=== PATIENT | male | born 1955 | race Caucasian/White ===

== ENCOUNTER 2020-12-19 09:23 | Inpatient (IN) | payer OTHER, MEDICAID ==
[~2020-12-19] VITALS: Ht 172.7 cm; Wt 108.8 kg
[~2020-12-19 09:23] MED LIST: ALLO300T2 PO; ATEN-72 PO; OLME40TA8 PO; OMEP20TA25 PO; TRAMADOL
[2020-12-19] MEDS ORDERED: ASPIRIN 325 MG TABLET PO ONE (11:45)
[2020-12-19] MEDS ORDERED: MethylPREDNISolone SOD SUCC 125 MG/2 ML VIAL IVP ONE (11:45)
[2020-12-19] MEDS ORDERED: ALBUTEROL SULFATE 2.5 MG/0.5 ML NEB SOLUTION NEB ONE ×2 (11:45→13:30)
[2020-12-19] MEDS ORDERED: AZITHROMYCIN 500 MG/NS 250 ML IV ONE (11:45)
[2020-12-19] MEDS ORDERED: IPRATROPIUM BROMIDE 0.5 MG/2.5 ML NEB SOLUTION NEB ONE ×2 (11:45→13:30)
[2020-12-19] MEDS ORDERED: FUROSEMIDE 40 MG/4 ML VIAL IVP ONE (11:45)
[2020-12-19 12:17] LABS: BASOPHILS % (AUTO) 0.7 % (0.0-2.0); EOSINOPHILS % (AUTO) 1.7 % (1.0-6.0); HEMATOCRIT 41.1 % (41-53); HEMOGLOBIN 13.1 g/dL (13.5-17.5); LYMPHOCYTES # (AUTO) 1.6 K/uL (1.0-4.8); LYMPHOCYTES % (AUTO) 12.7 % (22.0-44.0); MEAN CORPUSCULAR HEMOGLOBIN 31.5 pg (26.0-34.0); MEAN CORPUSCULAR HGB CONC 31.9 G/dL (31.0-37.0); MEAN CORPUSCULAR VOLUME 99 fL (80-100); MONOCYTES # (AUTO) 0.9 K/uL (0.1-1.0); MONOCYTES % (AUTO) 7.2 % (2.0-9.0); NEUTROPHILS # (AUTO) 9.7 K/uL (1.8-7.7); NEUTROPHILS % (AUTO) 77.7 % (40.0-70.0); PLATELET COUNT (AUTO) 202 K/uL (150-450); RED BLOOD CELL COUNT(AUTO) 4.17 MIL/uL (4.50-5.90); RED CELL DISTRIBUTION WIDTH 13.6 % (11.5-14.5)
[2020-12-19 12:26] LABS: ANION GAP 5 mmol/L (8-16); CALCIUM, TOTAL 8.6 mg/dL (8.8-10.5); CARBON DIOXIDE 33 mmol/L (22-29); CHLORIDE 106 mmol/L (98-107); CREATININE 1.14 mg/dL (0.60-1.30); GLOMERULAR FILTR. RATE CALC > 60 mL/min (>60); GLUCOSE,RANDOM 132 mg/dL (70-110); POTASSIUM 3.9 mmol/L (3.5-5.1); SODIUM SERUM 144 mmol/L (136-145); UREA NITROGEN, BLOOD 14 mg/dL (7-18)
[2020-12-19 12:43] LABS: B-TYPE NATRIURETIC PEPTIDE 26 pg/mL (0-100)
[2020-12-19 12:45] LABS: COVID AG,FIA SOURCE NASOPHARYNGEAL
[2020-12-19 12:52] LABS: ALANINE AMINOTRANSFERASE 34 U/L (12-78); ALKALINE PHOSPHATASE 41 U/L (46-116); ASPARTATE AMINOTRANSFERASE 29 U/L (15-37); BILIRUBIN,TOTAL 0.3 mg/dL (0.1-1.0); CREATINE KINASE, TOTAL ONLY 139 U/L (39-308); LIPASE 123 U/L (73-393); TOTAL PROTEIN, SERUM 7.6 g/dL (6.4-8.2)
[2020-12-19 13:26] LABS: INFLUENZA TYPE A NEGATIVE FOR TYPE A (NEGATIVE); INFLUENZA TYPE B NEGATIVE FOR TYPE B (NEGATIVE)
[2020-12-19] MEDS ORDERED: 0.9% SODIUM CHLORIDE 10 ML SYRINGE IVP PRN (14:15)
[2020-12-19] MEDS ORDERED: IPRATROPIUM BROMIDE 0.5 MG/2.5 ML NEB SOLUTION NEB PRN (14:15)
[2020-12-19] MEDS ORDERED: MAGNESIUM HYDROXIDE SUSPENSION 30 ML UDCUP PO PRN (14:15)
[2020-12-19] MEDS ORDERED: MORPHINE SULFATE 2 MG/ML SYRINGE IVP PRN (14:15)
[2020-12-19] MEDS ORDERED: ALBUTEROL SULFATE 2.5 MG/0.5 ML NEB SOLUTION NEB PRN (14:15)
[2020-12-19] MEDS ORDERED: ACETAMINOPHEN 325 MG TABLET PO PRN ×2 (14:15)
[2020-12-19] MEDS ORDERED: ONDANSETRON HCL 4 MG/2 ML VIAL IVP PRN ×2 (14:15)
[2020-12-19] MEDS ORDERED: BISACODYL 10 MG RECTAL RECTAL SUPPOSITORY PR PRN (14:15)
[2020-12-19] MEDS ORDERED: OxyCODONE HCL/ACETAMINOPHEN 5-325 MG TABLET PO PRN (14:15)
[2020-12-19] MEDS ORDERED: COLC0.6T73 PO (14:25)
[2020-12-19] MEDS ORDERED: ALBU0.8311 NEB (14:25)
[2020-12-19] MEDS ORDERED: FURO20TA4 PO (14:25)
[2020-12-19] MEDS ORDERED: MONT10TA32 PO (14:25)
[2020-12-19] MEDS ORDERED: TRAZ-252 PO (14:25)
[2020-12-19] MEDS ORDERED: FENO145T26 PO (14:25)
[2020-12-19] MEDS ORDERED: OMEP20CA13 PO (14:25)
[2020-12-19] MEDS: ALBUTEROL SULFATE 2.5 MG/0.5 ML NEB SOLUTION NEB SCH ×3 (14:29→23:00)
[2020-12-19] MEDS: IPRATROPIUM BROMIDE 0.5 MG/2.5 ML NEB SOLUTION NEB SCH ×3 (14:30→23:00)
[2020-12-19] MEDS ORDERED: ALBUTEROL SULFATE 2.5 MG/0.5 ML NEB SOLUTION NEB SCH (15:00)
[2020-12-19] MEDS ORDERED: IPRATROPIUM BROMIDE 0.5 MG/2.5 ML NEB SOLUTION NEB SCH (15:00)
[2020-12-19] MEDS: OXYGEN THERAPY IH SCH ×2 (15:06→21:03)
[2020-12-19] MEDS: HEPARIN SODIUM,PORCINE 5,000 UNITS/ML VIAL SQ SCH ×3 (16:00→23:41)
[2020-12-19 17:47] VITALS: BP 161/94
[2020-12-19] MEDS: MethylPREDNISolone SOD SUCC 125 MG/2 ML VIAL IVP SCH ×2 (18:25→23:35)
[2020-12-19 20:24] VITALS: BP 85/59
[2020-12-19 20:37] VITALS: BP 131/71
[2020-12-19] MEDS: DOCUSATE SODIUM 100 MG CAPSULE PO SCH ×2 (20:52→21:00)
[2020-12-19] MEDS: ZOLPIDEM TARTRATE 5 MG TABLET PO PRN (20:52)
[2020-12-19 23:42] VITALS: BP 113/76
[2020-12-20 01:34] LABS: APPEARANCE,URINE CLEAR (CLEAR); BILIRUBIN,URINE NEGATIVE (NEGATIVE); GLUCOSE, URINE (UA) 250 mg/dL (NEGATIVE); KETONES,URINE TRACE mg/dL (NEGATIVE); LEUKOCYTE ESTERASE ,URINE NEGATIVE (NEGATIVE); NITRATE,URINE NEGATIVE (NEGATIVE); OCCULT BLOOD,URINE NEGATIVE (NEGATIVE); PH,URINE 5.5 (5.0-8.0); PROTEIN,URINE NEGATIVE (NEGATIVE); UROBILINOGEN,URINE 0.2 mg/dL (<=1.0)
[2020-12-20 01:38] LABS: AMPHET/METH SCREEN,URINE NEGATIVE (NEGATIVE); BARBITURATE SCREEN, URINE NEGATIVE (NEGATIVE); BENZODIAZEPINES SCREEN,URINE NEGATIVE (NEGATIVE); CANNABINOID SCREEN,URINE NEGATIVE (NEGATIVE); COCAINE SCREEN,URINE NEGATIVE (NEGATIVE); METHADONE SCREEN, URINE NEGATIVE (NEGATIVE); OPIATE SCREEN,URINE NEGATIVE (NEGATIVE)
[2020-12-20 01:39] LABS: PHENCYCLIDINE SCREEN,URINE NEGATIVE (NEGATIVE)
[2020-12-20 01:56] LABS: RBC,URINE None Seen /HPF (0-2); WBC,URINE 0-2 /HPF (0-5)
[2020-12-20 01:57] LABS: BACTERIA,URINE None Seen /HPF (None Seen)
[2020-12-20] MEDS: IPRATROPIUM BROMIDE 0.5 MG/2.5 ML NEB SOLUTION NEB SCH ×6 (03:00→23:00)
[2020-12-20] MEDS: ALBUTEROL SULFATE 2.5 MG/0.5 ML NEB SOLUTION NEB SCH ×6 (03:00→23:00)
[2020-12-20 04:45] VITALS: BP 113/69
[2020-12-20] MEDS: IPRATROPIUM BROMIDE HFA 17 MCG/PUFF 12.9 GM INHALER IH PRN ×2 (05:32→20:55)
[2020-12-20] MEDS: MethylPREDNISolone SOD SUCC 125 MG/2 ML VIAL IVP SCH ×3 (05:41→18:31)
[2020-12-20] MEDS: HEPARIN SODIUM,PORCINE 5,000 UNITS/ML VIAL SQ SCH ×3 (08:00→16:00)
[2020-12-20 08:49] VITALS: BP 168/91
[2020-12-20] MEDS ORDERED: [UNRECOGNIZED DRUG - OTHER] PO SCH (09:00)
[2020-12-20] MEDS: ATENOLOL 50 MG TABLET PO SCH (09:07)
[2020-12-20] MEDS: PANTOPRAZOLE SODIUM 40 MG DR TABLET PO SCH (09:07)
[2020-12-20] MEDS: OLMESARTAN MEDOXOMIL 40 MG TABLET PO SCH (09:07)
[2020-12-20] MEDS: ALLOPURINOL 300 MG TABLET PO SCH (09:07)
[2020-12-20] MEDS: DOCUSATE SODIUM 100 MG CAPSULE PO SCH ×2 (09:07→20:54)
[2020-12-20 11:39] VITALS: BP 144/89
[2020-12-20 15:57] VITALS: BP 139/74
[2020-12-20 20:07] VITALS: BP 122/79
[2020-12-20] MEDS ORDERED: BENZONATATE 100 MG CAPSULE PO SCH (21:00)
[2020-12-20] MEDS: ZOLPIDEM TARTRATE 5 MG TABLET PO PRN (21:02)
[2020-12-20] MEDS ORDERED: BENZONATATE 100 MG CAPSULE PO PRN (21:30)
[2020-12-20] MEDS ORDERED: MAGNESIUM SULFATE 3 GM in DEXTROSE 5%-WATER 100 ML IV ONE (21:30)
[2020-12-20] MEDS ORDERED: SODIUM CHLORIDE 0.9% 250 ML IV ONE (22:20)
[2020-12-20] MEDS: GuaiFENesin/CODEINE [SUGAR FREE] 200-20MG/10 ML SYRUP UDCUP PO PRN (22:41)
[2020-12-20] MEDS ORDERED: AZITHROMYCIN 500 MG/NS 250 ML IV SCH (23:00)
[2020-12-21] MEDS: MethylPREDNISolone SOD SUCC 125 MG/2 ML VIAL IVP SCH ×2 (00:01→06:25)
[2020-12-21 00:30] VITALS: BP 114/69
[2020-12-21] MEDS: ALBUTEROL SULFATE 2.5 MG/0.5 ML NEB SOLUTION NEB SCH ×4 (02:40→15:00)
[2020-12-21] MEDS: IPRATROPIUM BROMIDE 0.5 MG/2.5 ML NEB SOLUTION NEB SCH ×4 (02:40→15:00)
[2020-12-21 04:54] VITALS: BP 134/71
[2020-12-21 07:33] LABS: EOSINOPHILS % (AUTO) 0 % (1.0-6.0); HEMATOCRIT 40.4 % (41-53); HEMOGLOBIN 12.7 g/dL (13.5-17.5); LYMPHOCYTES # (AUTO) 0.7 K/uL (1.0-4.8); LYMPHOCYTES % (AUTO) 4.4 % (22.0-44.0); MEAN CORPUSCULAR HEMOGLOBIN 31.3 pg (26.0-34.0); MEAN CORPUSCULAR HGB CONC 31.4 G/dL (31.0-37.0); MEAN CORPUSCULAR VOLUME 100 fL (80-100); MONOCYTES # (AUTO) 0.3 K/uL (0.1-1.0); MONOCYTES % (AUTO) 2.2 % (2.0-9.0); NEUTROPHILS # (AUTO) 14.6 K/uL (1.8-7.7); PLATELET COUNT (AUTO) 192 K/uL (150-450); RED BLOOD CELL COUNT(AUTO) 4.06 MIL/uL (4.50-5.90); RED CELL DISTRIBUTION WIDTH 13.9 % (11.5-14.5)
[2020-12-21 07:38] LABS: NEUTROPHILS % (AUTO) 93.4 % (40.0-70.0)
[2020-12-21 07:52] LABS: ALANINE AMINOTRANSFERASE 30 U/L (12-78); ALBUMIN 3.1 g/dL (3.4-5.0); ALKALINE PHOSPHATASE 33 U/L (46-116); ASPARTATE AMINOTRANSFERASE 28 U/L (15-37); BILIRUBIN,TOTAL 0.3 mg/dL (0.1-1.0); CALCIUM, TOTAL 8.6 mg/dL (8.8-10.5); CREATININE 1.02 mg/dL (0.60-1.30); GLOMERULAR FILTR. RATE CALC > 60 mL/min (>60); GLUCOSE,RANDOM 144 mg/dL (70-110); POTASSIUM 4.6 mmol/L (3.5-5.1); TOTAL PROTEIN, SERUM 6.6 g/dL (6.4-8.2); UREA NITROGEN, BLOOD 24 mg/dL (7-18)
[2020-12-21 08:00] LABS: CHLORIDE 105 mmol/L (98-107)
[2020-12-21 08:04] LABS: ANION GAP 1 mmol/L (8-16); CARBON DIOXIDE 37 mmol/L (22-29); SODIUM SERUM 143 mmol/L (136-145)
[2020-12-21] MEDS: ALLOPURINOL 300 MG TABLET PO SCH (08:18)
[2020-12-21] MEDS: OLMESARTAN MEDOXOMIL 40 MG TABLET PO SCH (08:18)
[2020-12-21] MEDS: DOCUSATE SODIUM 100 MG CAPSULE PO SCH (08:19)
[2020-12-21] MEDS: PANTOPRAZOLE SODIUM 40 MG DR TABLET PO SCH (08:19)
[2020-12-21] MEDS: HEPARIN SODIUM,PORCINE 5,000 UNITS/ML VIAL SQ SCH ×3 (08:19→15:15)
[2020-12-21] MEDS: ATENOLOL 50 MG TABLET PO SCH (08:19)
[2020-12-21] MEDS: IPRATROPIUM BROMIDE HFA 17 MCG/PUFF 12.9 GM INHALER IH PRN (08:21)
[2020-12-21 08:31] VITALS: BP 129/66
[2020-12-21] MEDS ORDERED: PANTOPRAZOLE SODIUM 40 MG DR TABLET PO SCH (09:00)
[2020-12-21] MEDS: GuaiFENesin/CODEINE [SUGAR FREE] 200-20MG/10 ML SYRUP UDCUP PO PRN (10:19)
[2020-12-21 11:56] VITALS: BP 106/53
[2020-12-21] MEDS ORDERED: MethylPREDNISolone SOD SUCC 125 MG/2 ML VIAL IVP SCH (12:00)
[2020-12-21] MEDS ORDERED: PredniSONE 20 MG TABLET PO ONE (14:30)
[2020-12-21] MEDS ORDERED: PRED10 PO (14:53)
[2020-12-21] MEDS ORDERED: BENZ-70 PO (14:57)
[2020-12-21] MEDS ORDERED: CODE10LI PO (14:59)
[2020-12-21] MEDS ORDERED: IPRA3AMP24 NEB (15:01)
[2020-12-21 15:16] VITALS: BP 117/80
[2020-12-21] MEDS ORDERED: AZIT-84 PO (15:44)
== END 2020-12-21 17:20 | disposition home or self-care (01) | DRG 192 ==
LOC: EMS 09:25 → 5N 16:15
PROVIDERS: ADMIT Hospitalist; ATTEND Hospitalist
DX: J44.1 Chronic obstructive pulmonary disease with (acute) exacerbation (principal); E11.9 Type 2 diabetes mellitus without complications; I10 Essential (primary) hypertension; E66.9 Obesity, unspecified; E78.5 Hyperlipidemia, unspecified; E83.42 Hypomagnesemia; K21.9 Gastro-esophageal reflux disease without esophagitis; M10.9 Gout, unspecified; Z20.822 Contact with and (suspected) exposure to COVID-19; Z68.36 Body mass index [BMI] 36.0-36.9, adult
CPT/HCPCS: 71045; 80053; 81001; 82550; 83605; 83690; 83735; 83880; 84484; 85025; 87040; 87804; 93005; 94640; 99285; J0456; J1644; J1940; J2930; J3475; J3535; J7050; J7060; 36415-L1; 36415-TC; J7613; U0003